=== PATIENT | female | born 1965 | race Caucasian/White ===

== ENCOUNTER 2018-01-20 16:29 | Emergency (ER) | payer OTHER ==
[2018-01-20 16:50] VITALS: BP 137/74
--- NOTE | 2018-01-20 17:02 | UC ---
Skin Complaint HPI - HPI Summary HPI Summary: The pt is a 52 y/o female from [place] presenting to with her daughter c/o an itchy rash in the lower abdomen, inguinal region, upper thighs, back, face and neck that started 2 days ago worsened today. She suspects it is poison Letty. She applied chamomile lotion and Benadryl itch cream to no relief . She has NKDA. She also reports lower left back pain back since 5-6 days ago. The pain aggravated by lifting her feet such as when driving. The pain does not radiate , except one occasion when it shot up her back. She denies sciatic pain. This is scribe Avelina Centeno documenting for attending Dr. Herrmann. I, Dr. Herrmann , personally performed the services described in this documentation as scribed in my presence and it is both accurate and complete. - History of Current Complaint Chief Complaint: [facility] Time Seen by Provider: 01/20/18 16:55 Stated Complaint: RASH Hx Obtained From: Patient, Family/Health Safety And Environment Manager - Daughter Onset/Duration: Lasting Days - 2 days, Still Present, Worse Since - Today Skin Exposure Onset/Duration: Worse Since: - Today Onset Severity: Severe Current Severity: Mild Pain Intensity: 2 Pain Scale Used: 0-10 Numeric Location: Discrete - lower abdomen upper thighs, back ,face and neck Character: Pruritus Alleviating Factor(s): Cold - ICE, OTC Meds - chamomile lotion and Benadryl itch cream Associated Signs & Symptoms: Positive: Rash Related History: Possible Reaction to: Environmental Exposure - Poison Letty - Allergy/Home Medications Allergies/Adverse Reactions: Allergies Allergy/AdvReac Type Severity Reaction Status Date / Time No Known Allergies Allergy Verified 01/20/18 16:51 Review of Systems Constitutional: Negative - Fever Skin: Rash - lower abdomen, inguinal region, upper thighs, back, face and neck Musculoskeletal: Other: - Lower back pain All Other Systems Reviewed And Are Negative: Yes PMH/Surg Hx/FS Hx/Imm Hx Previously Healthy: Yes - Denies a PMHx of DM, HTN, ND and HLD - Surgical History Surgical History: None Surgery Procedure, Year, and Place: c section - Family History Known Family History: Positive: Diabetes - Father - Social History Occupation: Unemployed Lives: With Family Alcohol Use: Daily Substance Use Type: None Smoking Status (MU): Never Smoked Tobacco Physical Exam - Summary Physical Exam Summary: General: well-appearing, no pain distress Skin: Vesicular rash on the bilateral LE and inguinal region. warm, color reflects adequate perfusion, dry Head: normal Eyes: EOMI, ANIBAL ENT: normal Neck: supple, nontender Respiratory: CTA, breath sounds present Cardiovascular: RRR Abdomen: soft, Inguinal region tender to palpation Bowel: present Musculoskeletal: lower back tender pulp drier to palpation, strength/ROM intact Neurological: sensory/motor intact, A&O x3 Psychological: affect/mood appropriate Triage Information Reviewed: Yes Vital Signs: Initial Vital Signs Temp 97.7 F 01/20/18 16:45 Pulse 66 01/20/18 16:45 Resp 20 01/20/18 16:45 BP 137/74 01/20/18 16:45 Pulse Ox 100 01/20/18 16:45 Vital Signs Reviewed: Yes Course/Dx - Diagnoses Provider Diagnoses: POISON LETTY. LOW BACK PAIN Discharge - Sign-Out/Discharge Documenting (check all that apply): Patient Departure - Discharge Plan Condition: Stable Disposition: HOME Prescriptions: HYDROcodone/ACETAMIN 5-325 MG* [[place] 5-325 TAB*] 1 tab PO Q4H PRN #20 tab MDD 6 PRN Reason: Pain predniSONE TAB* [Deltasone 20 MG TAB*] 40 mg PO DAILY #10 tab Patient Education Materials: Poison Letty (ED), Acute Low Back Pain (ED) Referrals: [facility] [Outside] Additional Instructions: FOLLOW UP WITH YOUR DOCTOR IF NOT COMPLETELY IMPROVED. GET RECHECKED FOR ANY WORSENING OF YOUR CONDITION OR QUESTIONS OR CONCERNS. - Billing Disposition and Condition Condition: STABLE Disposition: Home
== END 2018-01-20 17:30 | disposition home or self-care (01) ==
LOC: UCEAST 16:29
DX: L23.7 Allergic contact dermatitis due to plants, except food (principal); T63.791A Toxic effect of contact with other venomous plant, accidental (unintentional), initial encounter; Y92.9 Unspecified place or not applicable; M54.5 Low back pain
CPT/HCPCS: 99212; G0463